=== PATIENT | female | born 1985 | race Hispanic/Latino ===

== ENCOUNTER 2025-03-03 05:08 | Emergency (ER) | payer BC ==
[~2025-03-03] VITALS: Ht 170.2 cm; Wt 68.0 kg
[2025-03-03 05:16] VITALS: TEMP 98.2
[2025-03-03] MEDS: ibuPROFEN 600 MG TABLET PO ONE (05:23)
[2025-03-03 06:42] VITALS: BP 110/55; PULSE 65; RESP 18; O2SAT 97
--- NOTE | 2025-03-03 06:44 | ERN ---
General Chief Complaint: FOOT INJURY/PAIN Stated Complaint: RIGHT FOOT INJURY Time Seen by MD: 06:44 History of Present Illness Initial Comments 39-year-old female otherwise healthy presents for right ankle sprain/strain. She rolled her ankle last night. She has a bruising to the lateral aspect below the lateral malleolus. No other injuries. Ambulatory with an antalgic gait. Allergies: Coded Allergies: No Known Drug Allergies (Unverified Allergy, Unknown, 03/03/25) Past Medical History Past Medical History: No Pertinent History Past Surgical History: None ROS Dictation CONSTITUTIONAL: No chills, no fever, no weakness, no diaphoresis, no malaise. HEAD/FACE: No signs of trauma. EENT: No eye pain, no blurred vision, no tearing, no double vision, no ear pain, no ear discharge, no nose pain, no nasal congestion, no throat pain, no throat swelling, no mouth pain. RESPIRATORY: No cough, no orthopnea, no SOB, no stridor, no wheezing. CARDIOVASCULAR: No chest pain, no edema, no palpitations, no syncope. GASTROINTESTINAL/ABDOMINAL: No abdominal pain, no constipation, no diarrhea, no nausea, no vomiting. GENITOURINARY: No abnormal discharge, no dysuria, no frequent urination, no hematuria. No complaints of pain in the genitals. MUSCULOSKELETAL: Right ankle pain. INTEGUMENTARY: No change in color, no change in hair/nails, no dryness, no lesion, no lumps, no rash. NEUROLOGICAL/PSYCH: No anxiety, not depressed, no emotional problem, no headache, no numbness, no pre-existing deficit, no history of seizures, no tremors, no weakness. HEMATOLOGIC/LYMPHATIC: Not anemic, no history of blood clots, no apparent bleeding, no bruising, glands not swollen. All Systems Negative, Except as Noted. Physical Exam Physical Exam Dictation VITAL SIGNS: Reviewed. GENERAL APPEARANCE: Alert, oriented x3, no acute distress. EYES: PERRL, pink conjunctivas, eyelid no trauma, anterior chamber clear. EARS: Pinnas intact and no signs of trauma or erythema. Ear canals clear and no discharge. TMs no erythema. NOSE: No discharge, no bleeding. OROPHARYNX: Mouth normal, teeth no caries, tongue pink. Pharynx clear, no erythema. Tonsils no exudates, no abscesses noted. Mucous membrane moist. NECK: Supple, non-tender, no thyromegaly, no masses, no JVD, no bruits. BREAST: Deferred. CHEST: No tenderness, no crepitus, no paradoxical movement, no retractions. LUNGS: Clear, well-ventilated, symmetric, no rales, no wheezing, no rhonchi, no stridor, good breath sounds bilaterally. HEART: Regular rate, regular rhythm, no murmur, no gallops. VASCULAR: No peripheral edema. ABDOMEN: Soft, positive bowel sounds, nondistended, no guarding, nontender, no rebound, no masses no hepatomegaly, no splenomegaly, no Clay's sign, no hernias. RECTAL: Deferred. GENITAL: Deferred. NEUROLOGICAL: Normal speech, gross motor function intact, gross sensory function intact. MUSCULOSKELETAL: Neck nontender, full range of motion, back nontender, full range of motion. Right ankle swelling EXTREMITIES: Nontender, full range of motion. SKIN: Color pink, dry, no turgor, no rash, no lacerations, no abrasions, no contusions. LYMPHATICS: Deferred. MDM CC: Right ankle pain status post role injury last night Historian: Patient Comorbidities: The Limitations by social determinants: None Differential diagnosis: Sprain/strain versus fracture Vital signs are stable Clinically there were no concerning findings on the exam. He had some swelling but it is a neurovascularly intact and has not antalgic gait with walking. Able to bear weight. Foot x-ray and ankle x-ray per my independent interpretation shows no fractures. Soft tissue swelling. We will DC with the [facility], Tylenol Motrin, PCP follow up. ED Course Orders Procedure Category Date Status Time Ibuprofen 600 Mg PHA 03/03/25 Complete Tablet (Motrin) 05:30 Ankle Comp 3vws Rt RAD 03/03/25 Taken 05:15 Foot Comp 3+Vws Rt RAD 03/03/25 Taken 05:15 Current Medications Medications (Trade) Dose Ordered Sig/Lane Route PRN Reason Start Time Stop Time Status Last Admin Dose Admin Ibuprofen (moTRIN) 600 mg ONCE ONCE PO 03/03/25 05:30 03/03/25 05:31 DC 03/03/25 05:23 Vital Signs Date Time Temp Pulse Resp B/P (MAP) Pulse Ox O2 Delivery O2 Flow Rate FiO2 03/03/25 06:42 65 18 110/55 97 Room Air* 0 21 03/03/25 05:16 98.2 64 18 133/71 99 Room Air* 0 21 03/03/25 05:10 98.8 64 18 120/87 99 Room Air 0 DX & DISP Disposition: Discharge Departure Impression: Primary Impression: Right foot sprain Condition: Stable Additional Instructions: Your symptoms are consistent with a sprain/strain. The x-rays do not show any fractures. Rest your foot until it has healed. You can bear weight as tolerated. Ice your foot for at least 20 minutes 3 times per day for the next 2-3 days to reduce swelling. Wear an Eliud wrap. Elevate your foot as much as possible. Alternate Tylenol (1000 mg) and ibuprofen (600 mg) every 4 hours as needed for pain. Follow up with the primary doctor in one week if you continue with symptoms. Referrals: LILLIANA BASS (PCP) NARINDER DEAL DO Mar 03, 2025 06:44
--- NOTE | 2025-03-03 08:55 | HMCIMG ---
FOOT COMP 3+VWS RT HISTORY: Foot injury COMPARISON: None TECHNIQUE: 3 images of right foot were obtained. FINDINGS: There is no acute displaced fracture or dislocation. IMPRESSION: 1. Findings as described above.
--- NOTE | 2025-03-03 08:56 | HMCIMG ---
ANKLE COMP 3VWS RT HISTORY: Foot injury COMPARISON: None TECHNIQUE: 3 images of right foot were obtained. FINDINGS: There is no acute displaced fracture or dislocation. IMPRESSION: 1. Findings as described above.
== END 2025-03-03 06:55 | disposition home or self-care (01) ==
LOC: EDH 05:08
DX: S93.401A Sprain of unspecified ligament of right ankle, initial encounter (principal); X50.1XXA Overexertion from prolonged static or awkward postures, initial encounter; Y93.89 Activity, other specified; Y92.89 Other specified places as the place of occurrence of the external cause; Y99.8 Other external cause status
CPT/HCPCS: 73610; 73630; 99283